=== PATIENT | female | born 1995 ===

== ENCOUNTER 2021-06-15 05:43 | Inpatient (IN) | payer OTHER ==
[2021-06-15] VITALS (17 sets, daily range): BP systolic 90–115; BP diastolic 48–82; PULSE 55–87; TEMP 97.7–98.5
[~2021-06-15] VITALS: Ht 167.6 cm; Wt 81.4 kg
[2021-06-15 06:35] LABS: BASO % 0.3 % (0.0-2.0); EOS # 0.1 K/mm3 (0.0-0.7); GRAN # 4.9 K/mm3 (1.4-6.5); GRAN % 68.3 % (42.2-75.2); HEMOGLOBIN 12.7 g/dl (12.5-16.0); LYMPH # 1.7 K/mm3 (1.2-3.4); LYMPH % 23.6 % (20.0-51.0); MEAN CELL VOLUME 90 fl (80.0-100.0); MEAN CORPUSCULAR HEMOGLOBIN 31 pg (27-31); MEAN CORPUSCULAR HGB CONC 34 g/dl (33.0-37.0); MEAN PLATELET VOLUME 10.7 fl (7.4-10.4); MONO # 0.4 K/mm3 (0.1-0.6); MONO % 5.8 % (1.7-9.3); PLATELET COUNT 137 K/mm3 (130-400); RED BLOOD COUNT 4.11 M/mm3 (4.10-5.30); REDCELL DISTRIBUTION WIDTH-CV 13.2 % (11.5-14.5)
[2021-06-15] MEDS ORDERED: ZOLOFT 50MG50 MG PO (06:36)
[2021-06-15] MEDS ORDERED: PRENATAL TABLET PO (06:36)
[2021-06-16] VITALS: BP 114/55; PULSE 81; TEMP 98.1
[2021-06-16 06:29] LABS: HEMOGLOBIN 9.7 g/dl (12.5-16.0)
[2021-06-16 08:00] VITALS: BP 99/63; PULSE 68; TEMP 97.9
[2021-06-16] MEDS ORDERED: IBU600 MG PO (08:14)
[2021-06-16] MEDS ORDERED: PERCOCET 325 MG1 TA2 PO (08:14)
--- NOTE | 2021-06-16 09:21 | NUR ---
Initial visit; Parents thanked [employer] for offering congratulatons and God's blessings for the of their son. Ge[employer]ist thanked family for choosing [facility].
== END 2021-06-16 14:00 | disposition home or self-care (01) | DRG 788 ==
LOC: OB 05:43
PROVIDERS: ADMIT Obstetrics & Gynecology
PROC: 10D00Z1 Extraction of Products of Conception, Low, Open Approach (ICD-10-PCS; principal; 2021-06-15)
DX: O44.43 Low lying placenta NOS or without hemorrhage, third trimester (principal); Z37.0 Single live birth; O99.344 Other mental disorders complicating childbirth; F41.9 Anxiety disorder, unspecified; O90.81 Anemia of the puerperium; D64.9 Anemia, unspecified; Z3A.38 38 weeks gestation of pregnancy
CPT/HCPCS: J0171; J0690; J1885; J2175; J2370; J2405; J2590; J7120